=== PATIENT | male | born 1970 | race Caucasian/White ===

== ENCOUNTER → 2022-07-18 20:36 | Outpatient (CLI) | payer BC, SELFPAY ==
--- NOTE | 2022-12-23 13:33 | PC.NURSE ---
Spoke with patient today about a overnight pulse ox and he stated he didn't feel like he needed [email or web address] do it at this time.
== END ==
LOC: SL 20:44
PROVIDERS: PCP Family Medicine; Visit Provider Family Medicine
DX: G47.33 Obstructive sleep apnea (adult) (pediatric) (principal); R06.83 Snoring
CPT/HCPCS: 95806